=== PATIENT | female | born 2000 | race Caucasian/White ===

== ENCOUNTER 2024-01-02 09:00 | Outpatient (RCR) | payer OTHER, SELFPAY | END 2024-01-02 09:21 | disposition home or self-care (01) | LOC: HO.PT 09:00 | PROVIDERS: PCP Pediatrics Adolescent Medicine; Visit Provider Obstetrics & Gynecology | DX: N94.2 Vaginismus (principal); G89.29 Other chronic pain; R10.2 Pelvic and perineal pain | CPT/HCPCS: 97110; 97140; 97162 ==

== ENCOUNTER 2024-02-23 09:44 | Outpatient (AMB) | payer OTHER, SELFPAY ==
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
[2024-02-23 10:05] VITALS: BP 100/60; PULSE 76; RESP 20; BMI 31.6
== END 2024-02-23 10:41 | disposition home or self-care (01) ==
PROVIDERS: PCP Internal Medicine; Visit Provider Internal Medicine
DX: Z00.00 Encounter for general adult medical examination without abnormal findings (principal); L91.8 Other hypertrophic disorders of the skin; M25.511 Pain in right shoulder; G89.29 Other chronic pain; Z87.81 Personal history of (healed) traumatic fracture
CPT/HCPCS: 99385

== ENCOUNTER 2024-07-23 09:03 | Outpatient (AMB) | payer OTHER, SELFPAY ==
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
[2024-07-23 09:09] VITALS: BP 118/68; PULSE 74; RESP 12; O2SAT 98; BMI 33.3
== END 2024-07-23 09:49 | disposition home or self-care (01) ==
PROVIDERS: PCP Internal Medicine; Visit Provider Internal Medicine
DX: F41.9 Anxiety disorder, unspecified (principal)

== ENCOUNTER → 2024-07-23 09:03 | Outpatient (BNVA) | payer OTHER, SELFPAY | PROVIDERS: PCP Internal Medicine; Visit Provider Internal Medicine | DX: F41.9 Anxiety disorder, unspecified (principal); J45.909 Unspecified asthma, uncomplicated | CPT/HCPCS: 96127 ==

== ENCOUNTER 2024-08-09 11:19 | Outpatient (AMB) | payer OTHER, SELFPAY ==
--- NOTE | 2024-08-09 11:43 | MHC.PC.OV ---
Vital Signs 08/09/24 11:48 Height 5 ft 4 in Weight 199 lb 2 oz BMI 34.2 BP 108/74 Blood Pressure Location Lt brachial Position Sitting Pulse 74 Pulse Source Pulse Oximeter Temp 98.2 F Temp Source Oral Pulse Oximetry (%) 99 Oxygen Delivery Method Room Air Intake Visit Reasons: Sinus infection Intake Note: Last Friday had sore throat and nasal drip. more congested on Friday. Covid test on Friday was never. Ear popping, sinus pain. Director Of [facility] Required: No Allergies prednisone Allergy (Unknown, Verified 08/09/24 11:45) Unknown Tobacco use date assessed: 02/23/24 Dental Screening Dental Screen Date: 02/23/24 HPI HPI Comments History of Present Illness Details This is a 24-year-old female with a past medical history of anxiety and asthma presenting for a sick visit. The patient developed sinus congestion 8 days ago. She has worsening pressure in her sinuses and sinus pain. This is worse if she presses on her cheeks. She had postnasal drip. She has nasal discharge. She feels tired. No fevers or chills. No cough, wheezing or shortness of breath. Her ears feel congested but not painful, and she can still hear normally. Sore throat with bothering her mid week which she attributes to postnasal drip. This resolved. Home COVID-19 test negative. ROS: Constitutional: No fevers or chills. Eyes: No vision changes, blurry vision, double vision, eye pain, eye redness, eye discharge. ENT: No hearing loss, ear pain, see HPI Respiratory: No shortness of breath, cough or sputum production. Cardiovascular: No chest pain Gastrointestinal: No anorexia, nausea, vomiting or diarrhea. No abdominal pain or blood in stool. Neurologic: No headache, dizziness, syncope. Skin: No rash Physical exam: Constitutional: Alert, in no distress. Eyes: Pupils are equal, round and reactive to light. Extraocular muscles intact. Ear, Nose and Throat: TMs vanegas, pearly. Nasal mucosa erythematous. Clear nasal discharge present bilaterally. Inferior turbinates 2+. Maxillary sinuses tender. No oral lesions, exudates or erythema. Neck: Supple, Full range of motion. No lymphadenopathy. Respiratory: Clear to auscultation. Cardiovascular: S1 S2 regular. No murmurs. Neurologic: No focal neurological deficits. Extremities: Warm and well perfused. 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 1. Little interest or pleasure in doing things: several days 2. Feeling down, depressed, or hopeless: several days 3. Trouble falling or staying asleep, or sleeping too much: more than half the days 4. Feeling tired or having little energy: more than half the days 5. Poor appetite or overeating: not at all 6. Feeling bad about yourself - or that you are a failure or have let yourself or your family down: not at all 7. Trouble concentrating on things, such as reading the newspaper or watching television: not at all 8. Moving or speaking so slowly that other people could have noticed. Or the opposite - being so fidgety or restless that you have been moving around a lot more than usual: not at all 9. Thoughts that you would be better off or of hurting yourself in some way: not at all Total score: 6 Source: Developed by Drs. Bahman Murguia, Maxine Blakely, Jean Cedeno and colleagues, with an educational luke from [employer]. Thrive Questionnaire Date Thrive assessed: 07/23/24 I am a: Patient What is your living situation today?: I have a steady place to live Within the past 12 months, did the food you bought not last and you didn't have the money to get more?: Never true Within the past 12 months, did you worry whether your food would run out before you got money to buy more?: Never true Do you have trouble paying for medicines?: No Do you have trouble getting transportation to medical appointments?: No Do you have trouble paying your heating and electricity bill?: No Do you have trouble taking care of your child, family member or friend?: No Do you have trouble with day-to-day activities such as bathing, preparing meals, shopping, managing finances, etc.?: No Are you currently unemployed and looking for a job?: No Are you interested in more education?: No Please select the resources that you would like help with: None Currently or been in a relationship where the following occur: I choose not to answer THRIVE Score: 0 AUDIT C Alcohol Use Questionnaire (AUDIT-C) 1. How often do you have a drink containing alcohol?: Monthly or less 2. How many drinks containing alcohol do you have on a typical day when you are drinking?: 1 or 2 3. How often do you have six or more drinks on one occasion?: Never Total Score: 1 NATALYA-7 AMB Questionnaire NATALYA-7 Date NATALYA - 7 assessed: 07/23/24 Feeling nervous, anxious, or on edge: 1 = Several days Not being able to stop or control worryin = More than half the days Worrying too much about different things: 2 = More than half the days Trouble relaxin = More than half the days Being so restless that it is hard to sit still: 2 = More than half the days Becoming easily annoyed or irritable: 2 = More than half the days Feeling afraid as if something awful might happen: 2 = More than half the days Total NATALYA-7 score (0-4 normal; 5-9 mild; 10-14 moderate; 15-21 severe): 13 Source: Developed by Drs. Bahman Murguia, Maxine Blakely, Jean Cedeno and colleagues, with an educational luke from [employer]. Physical exam (Primary Care) Vital Signs: Last Vital Signs Temp 98.2 F 08/09/24 11:48 Pulse 74 08/09/24 11:48 BP 108/74 08/09/24 11:48 Pulse Ox 99 08/09/24 11:48 Oxygen Delivery Method Room Air 08/09/24 11:48 BMI result Body Mass Index 34.2 Tobacco/Smoking Status: Tobacco use Status Tobacco use date assessed 02/23/24 08/09/24 11:47 Patient Tobacco Use Status Never used Tobacco 08/09/24 11:47 e-Cigarette/Vaping Use Never Used 08/09/24 11:47 PHQ-9: PHQ-9 Score PHQ-9: Total score 6 08/09/24 12:03 Thrive Assessment: Date of Thrive Assessment Date Thrive assessed 07/23/24 08/09/24 11:47 Currently or been in a relationship where the following occur: I choose not to answer Coding Level of Care Code Est Pt Level 3 (37718) Complex EM visit Add On G2211 Diagnoses Acute sinusitis J01.90 Assessment & Plan Assessment & Plan (1) Acute sinusitis: Code(s): J01.90 - Acute sinusitis, unspecified Category: Medical Plan: No allergies to antibiotics. Prescribed Augmentin. Take with food. Have yogurt and daily probiotics. Side effects reviewed. Use backup control for any cycles that overlap with antibiotic. Complete full course of antibiotics. Recommended nasal saline and Nasacort or Flonase 1 spray twice daily in each nares. Increase fluids. She can use supportive care at home including Vicks in a cool mist humidifier. Reviewed warning signs warranting follow up. She verbalizes understanding. Medications: New amoxicillin-pot clavulanate 875-125 mg 1 tab PO BID 20 tabs 0RF
[2024-08-09 11:48] VITALS: BP 108/74; PULSE 74; TEMP 36.8; O2SAT 99; BMI 34.2
== END 2024-08-09 13:48 | disposition home or self-care (01) ==
PROVIDERS: PCP Internal Medicine; Visit Provider Physician Assistant Medical
DX: J01.90 Acute sinusitis, unspecified (principal)

== ENCOUNTER 2024-09-01 09:22 | Outpatient (REF) | payer OTHER, SELFPAY ==
--- NOTE | ~2024-09-01 | XR_ITS ---
EXAMINATION: XR CHEST CLINICAL INFORMATION: J10.1 - Influenza due to other identified influenza virus with other res... COMPARISON: None available. TECHNIQUE: 2 views of the chest were obtained. FINDINGS: No consolidation, pleural effusion or pneumothorax. No hyperinflation. Cardiomediastinal silhouette is normal. Osseous structures are intact. Mild S-shaped curvature of the thoracolumbar junction. XR/XR chest 2V IMPRESSION: No acute airspace disease. Thoracolumbar scoliosis, mild. Electronically signed by: José Kwong MD 09/01/2024 10:43 AM ENRRIQUE
--- OUTSIDE RECORDS SUMMARY | 2024-09-01 11:20 | XMS_ITS | Encounter Summary ---
Author Organization [facility] Address [address] [place] [id number] Care Team Providers Care Environmental Services Project Manager Name Role Phone Meghan Lujan MD Primary Care Provider [phone] Encounter Details Date Type Department Care Team (Late st Contact Info) Description 09/06/2022 Telephone [facility] at [facility] [address], [place] [id number] Mariam Foote, TOOL LAPPER HAND [address] [place] [id number] Social History Tobacco Use Types Packs/Day Years Used Date Smoking Tobacco: Never Smokeless Tobacco: Never Comments No Sex and Gender Information Value Date Recorded Sex Assigned at Female 08/04/2020 6:21 PM EST Legal Sex Female 10:33 AM EDT Gender Identity Female 08/04/2020 6:21 PM EST Sexual Orientation Straight 08/04/2020 6: 21 PM EST documented as of this encounter Miscellaneous Notes * Telephone Encounter - Shivam Flood - 09/06/2022 2:31 PM EST Received a call from patient, she was seen Friday and referred to ortho @ [place], she found an earlier appt with ([facility], they are requiring a referral before they can schedule the patient documented in this encounter Plan of Treatment Not on file documented as of this encounter Visit Diagnoses Not on filedocumented in this encounter Care Teams Environmental Services Project Manager Relationship Specialty Start Date End Date Meghan Lujan MD [address] [place] [phone] PCP - General Pediatrics 08/21/20 documented as of this encounter
--- OUTSIDE RECORDS SUMMARY | 2024-09-01 11:20 | XMS_ITS | Clinical Summary ---
Author Organization [address] Address [address] [place] [phone] Phone Care Team Providers Care Sightseeing Guide Name Role Phone Meghan Lujan MD Primary Care Provider [phone] Allergies Active Allergy Reactions Criticality Noted Date Comments Peanut Anaphylaxis High 08/21/2020 Medications EPINEPHrine (EPIPEN) 0.3 mg/0.3 mL auto-injector Inject 0.3 mg into the muscle as needed. Seek immediate medical attention via EMS and hospital. 1 each 1 Active albuterol sulfate 90 mcg/actuation HFA aerosol inhaler INHALE TWO PUFFS BY MOUTH EVERY 4-6 HOURS NEEDED 2 Active QVAR REDIHALER 80 mcg/actuation HFA aerosol inhaler INHALE TWO PUFFS BY MOUTH TWICE A DAY 2 Active medroxyPROGESTE Khurram (DEPO-PROVERA) 150 mg/mL injection INJECT 1 ML INTO THE MUSCLE ONCE EVERY 3 MONTHS 3 Active tiZANidine (ZANAFLEX) 2 mg tabletIndicatio ns:Chronic bilateral low back pain with right-sided sciatica Take 1 tablet (2 mg total) by mouth 3 (three) times daily as needed (muscle pain). 30 tablet 3 Active rizatriptan (MAXALT) 5 mg tablet TAKE 1 TABLET BY MOUTH NEEDED FOR MIGRAINE. MAY REPEAT IN 2 HOURS IF NEEDED 2 Active methylPREDNISol one (MEDROL DOSEPACK) 4 mg tablet TAKE SIX TABLETS FOR 1 DAY, THEN FIVE TABLETS FOR 1 DAY, THEN FOUR TABLETS FOR 1 DAY,THEN THREE TABLETS FOR 1 DAY, THEN TWO TABLETS FOR 1 DA 3 Active meloxicam (MOBIC) 15 mg tablet Take 1 tablet (15 mg total) by mouth daily. 3 Active loperamide (IMODIUM) 2 mg capsuleIndicati ons:Gastroenter itis Take 1 capsule (2 mg total) by mouth 4 (four) times daily as needed for diarrhea. 4 capsule 3 Active phenol-phenolat e sodium (CHLORASEPTIC) SprA oral sprayIndication s:Sore throat Take 1 spray by mouth 4 (four) times daily as needed. 177 mL 3 Active Active Problems No known active problems Immunizations Name Administration Dates Next Due Influenza, injectable, quadrivalent, preservativ e free 05/08/2021 Influenza, recombinant, quad, preservative free 05/21/2020 Social History Tobacco Use Types Packs/Day Years Used Date Smoking Tobacco: Never Smokeless Tobacco: Never Tobacco Cessation:Counseling Given: Not Answered Comments No Sex and Gender Information Value Date Recorded Sex Assigned at Female 08/04/2020 6:21 PM EST Legal Sex Female 10:33 AM EDT Gender Identity Female 08/04/2020 6:21 PM EST Sexual Orientation Straight 08/04/2020 6: 21 PM EST Last Filed Vital Signs Vital Sign Reading Time Taken Comments Blood Pressure 128/84 10/17/2022 10:35 AM EDT Pulse 96 10/17/2022 10:07 AM EDT Temperature 36.9 ??C (98.4 ??F) 08/21/2020 5:31 PM ES T Respiratory Rate 18 08/21/2020 5:31 PM EST Oxygen Saturation 99% 10/17/2022 10:07 AM EDT Inhaled Oxygen Concentration - - Weight 90.7 kg (200 lb) 10/17/2022 10:07 AM EDT Height 162.6 cm (5' 4 ) 10/17/2022 10:07 AM EDT Body Mass Index 34.33 10/17/2022 10:07 AM EDT Plan of Treatment Health Maintenance Due Date Last Done Comments MMR Vaccines (1 of 1 - Standard series) 2003 DTaP/TDaP Vaccines (1 - Tdap) 2009 HIV screening 2015 Varicella Vaccines (1 of 2 - 13+ 2-dose series) 2015 HPV vaccine series (1 - 3-do se series) 2017 Chlamydia screening 2019 Hepatitis C screening 01/09/2020 Hepatitis B vaccine series ( 1 of 3 - 19+ 3-dose series) 2021 Tetanus adult (Td q 10,TDAP once) 2022 Cervical cancer screening 2023 Influenza vaccine 02/26/2024 05/08/2021, 05/21/2020 Covid-19 vaccine series ( - 2023- season) 2024 RSV Discussion (1 - 1-dose 7 5+ series) 2077 HIB Vaccines Aged Out No longer eligi ble based on patient's age to complete this topic Hepatitis A Vaccines Aged Out No long er eligible based on patient's age to complete this topic IPV Vaccines Aged Out No longer eligi ble based on patient's age to complete this topic Meningococcal Vaccine Aged Out No marina jessica eligible based on patient's age to complete this topic Pneumococcal Vaccine Aged Out No long er eligible based on patient's age to complete this topic Rotavirus Vaccines Aged Out No longer eligible based on patient's age to complete this topic Insurance AETNA [facility] AETNA [facility] AETNA [facility] Care Teams Sightseeing Guide Relationship Specialty Start Date End Date Meghan Lujan MD [address] [place] [address] [place] [address] PCP - General Pediatrics 08/21/20
--- OUTSIDE RECORDS SUMMARY | 2024-09-01 11:20 | XMS_ITS | Encounter Summary ---
Author Organization [facility] Address [address] [place] [phone] Care Team Providers Care Dimensional Integration Engineer Name Role Phone Meghan Lujan MD Primary Care Provider [phone] Encounter Details Date Type Department Care Team ([facility] st Contact Info) Description 09/19/2021 Scanned Document INTERFACE DEFAULT [address] [place] [phone] System, Provider Not In Social History Tobacco Use Types Packs/Day Years Used Date Smoking Tobacco: Never Assessed Comments No Sex and Gender Information Value Date Recorded Sex Assigned at Female 08/04/2020 6:21 PM EST Legal Sex Female 10:33 AM EDT Gender Identity Female 08/04/2020 6:21 PM EST Sexual Orientation Straight 08/04/2020 6: 21 PM EST documented as of this encounter Miscellaneous Notes * Result Encounter Note - Slime Baum MD - 09/19/2021 11:59 PM EST As you know, your ct scan is normal. I hope that you are feeling better. Please check [facility] with [facility] next [facility]. - Dr. Santiago(Sent to pt in [employer]) documented in this encounter Plan of Treatment Not on file documented as of this encounter Procedures Procedure Name Priority Date/Time Associated Diagnosis Comments CT RESULT SCAN 09/19/2021 12:00 AM EST documented in this encounter Results * CT RESULT SCAN (09/19/2021 12:00 AM EST) 09/19/2021 us Provider Not In System IMG SCAN REPORTS Final Re sult documented in this encounter Visit Diagnoses Not on filedocumented in this encounter Care Teams Dimensional Integration Engineer Relationship Specialty Start Date End Date Meghan Lujan MD [address] [place] [phone] PCP - General Pediatrics 08/21/20 documented as of this encounter
== END 2024-09-01 09:23 | disposition home or self-care (01) ==
LOC: HO.HMGCX 09:22
PROVIDERS: PCP Internal Medicine; Visit Provider Nurse Practitioner Family
DX: J10.1 Influenza due to other identified influenza virus with other respiratory manifestations (principal); J45.20 Mild intermittent asthma, uncomplicated; R05.1 Acute cough
CPT/HCPCS: 71046

== ENCOUNTER → 2024-09-01 10:28 | Outpatient (BNV) | payer OTHER, SELFPAY | PROVIDERS: PCP Internal Medicine; Visit Provider Radiology Diagnostic Radiology | DX: J10.1 Influenza due to other identified influenza virus with other respiratory manifestations (principal) | CPT/HCPCS: 71046 ==

== ENCOUNTER 2024-09-03 15:55 | Outpatient (AMB) | payer OTHER, SELFPAY ==
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
--- OUTSIDE RECORDS SUMMARY | 2024-09-03 15:57 | XMS_ITS | Clinical Summary ---
Author Organization [address] Address [address] [place] [phone] Phone Care Team Providers Care Staff Climate Scientist Name Role Phone Meghan Lujan MD Primary Care Provider [phone] Allergies Active Allergy Reactions Criticality Noted Date [...] age to complete this topic Insurance [facility] [facility] [facility] Care Teams Staff Climate Scientist Relationship Specialty Start Date End Date Meghan Lujan MD [address] [place] [address] [place] [address] PCP - General Pediatrics 08/21/20
--- OUTSIDE RECORDS SUMMARY | 2024-09-03 15:57 | XMS_ITS | Encounter Summary ---
Author Organization [facility] Address [address] [place] [phone] Care Team Providers Care Hi Lo Driver Name Role Phone Meghan Lujan MD Primary Care Provider [phone] Encounter Details Date Type Department Care Team (Late st Contact Info) Description 09/06/2022 Telephone NEMG at [facility] [address] [place], [place] [phone] Mariam Foote, CAR FILLER [address] [place] [phone] Social History Tobacco Use Types Packs/Day Years [...] seen Friday and referred to ortho @ [place], she found an earlier appt with ([facility] [place] [facility], they are requiring a referral before they can schedule the patient documented in this encounter Plan of Treatment Not on file documented as of this encounter Visit Diagnoses Not on filedocumented in this encounter Care Teams Hi Lo Driver Relationship Specialty Start Date End Date Meghan Lujan MD [address] [place] [phone] PCP - General Pediatrics 08/21/20 documented as of this encounter
--- OUTSIDE RECORDS SUMMARY | 2024-09-03 15:57 | XMS_ITS | Encounter Summary ---
Author Organization [facility] Address [address] [place] [phone] Care Team Providers Care Us Customs And Border Officer Name Role Phone Meghan Lujan MD Primary Care Provider [phone] Encounter Details Date Type Department Care Team ([facility] st Contact Info) Description 09/19/2021 Scanned Document INTERFACE DEFAULT [address] [place] [phone] System, Provider Not In Social History Tobacco [...] check in with me inhealth services at [facility] next week. - Dr. Santiago(Sent to pt in [employer]) documented in this encounter Plan of Treatment [...] on filedocumented in this encounter Care Teams Us Customs And Border Officer Relationship Specialty Start Date End Date Meghan Lujan MD [address] [place] [phone] PCP - General Pediatrics 08/21/20 documented as of this encounter
--- OUTSIDE RECORDS SUMMARY | 2024-09-03 15:57 | XMS_ITS | Patient Health Record ---
Author Organization [facility] Address [address] [place] [address] Support Name Relationship Address Phone Paulette Peña Guarantor Unknown [phone] Reason For Referral No Information Plan Of Treatment Pending Test Test Name Order Date Respiratory Panel w COVID19 03/09/2020 Respiratory Panel w COVID19 03/09/2020 Respiratory Panel w COVID19 03/09/2020 COVID19 IH 03/09/2020 COVID19 IH 03/09/2020 COVID19 IH 03/09/2020 Insurance Providers Payer Name Payer Address Payer Phone Subscriber Number Group Number Insured Name Patient Relationship to Insured Coverage Start Date Coverage End Date Aetna [address] [place] [address] [id number] Paulette Peña Self - patient is the insured
== END 2024-09-03 17:05 | disposition home or self-care (01) ==
LOC: HO.HMCFM 15:55
PROVIDERS: PCP Internal Medicine; Visit Provider Internal Medicine
DX: F41.9 Anxiety disorder, unspecified (principal)

== ENCOUNTER → 2024-09-03 15:55 | Outpatient (BNVA) | payer OTHER, SELFPAY | PROVIDERS: PCP Internal Medicine; Visit Provider Internal Medicine | DX: F41.9 Anxiety disorder, unspecified (principal); J45.909 Unspecified asthma, uncomplicated | CPT/HCPCS: 96127 ==

== ENCOUNTER 2024-11-02 11:41 | Outpatient (AMB) | payer OTHER, SELFPAY ==
--- NOTE | 2024-11-02 11:51 | AM.OFFWIN_ITS ---
Intake Vital Signs 11/02/24 11:59 Height 5 ft 4 in Weight 198 lb 8 oz BMI 34.1 BP 112/66 Blood Pressure Location Rt brachial Position Sitting Respiration 12 Pulse 73 Pulse Source Pulse Oximeter Temp 97.6 F Temp Source Oral Pulse Oximetry (%) 98 Oxygen Delivery Method Room Air Intake Visit Reasons: Sore throat /cough Intake Note: Patient c/o coughing, runny nose, congestion, face and head pressure x 1 week. Patient was also seen in urgent care last Friday and finished her prednisone and finished it on Friday. Patient Tobacco Use Status: Never used Tobacco Electrical Cad Designer Required: No Allergies No Known Allergies Allergy (Verified 11/02/24 12:20) Medication List - Last Reconciled 11/02/24 by KVNG AldanaP- albuterol sulfate 90 mcg/actuation 2 puffs inhalation Q4H PRN 90 days beclomethasone dipropionate 80 mcg/actuation (Qvar RediHaler) 0 inhalations inhalation epinephrine IM fluoxetine (Prozac) 10 mg PO DAILY ipratropium-albuterol 20-100 mcg/actuation (Combivent Respimat) 1 puff inhala tion QID levonorgestrel-ethinyl estrad 0.1-20 mg-mcg (Vienva) 1 tab PO DAILY lorazepam 1 mg PO BID PRN ondansetron mg PO PRN rizatriptan 5 mg PO Q2H PRN 90 days MDD 2 tab spironolactone 50 mg PO DAILY Do you need a note to return to daycare/school/sports/work: Yes HPI HPI Comments History of Present Illness Details 24 y/o F here today with URI Started 2 weeks ago Sore throat, runny nose, cough, sinus congestion and pressure Went to last Friday Given prednisone and told of viral URI Stopped pred on Friday [place] better but all sx recurred w/in 24 hours Reports flu covid and rsv testing negative Using APAP Denies fever, chills, n/v/d, abd pain, trouble or painful swallowing Exam Awake alert NAD Sclera and conjunctiva clear bilat Nares mucoid d/c , turbinates erythematous and edematous, + frontal and maxillary sinus tenderness with palpation bilat TM intact + congestion bilat, R>L MMM, pharynx WNL RRR LS CTAB Plan: Augmentin BID x 7 days take w/food to avoid GI upset No nasal decongestants flonase and saline ok edu on reasons to RTO PFSH Medical History Acute sinusitis Family History Father High blood pressure Paternal Grandmother High blood pressure Paternal Grandfather High blood pressure High cholesterol Skin cancer Maternal Grandmother Diabetes Maternal Grandfather Stomach cancer Social History Housing: House Patient Tobacco Use Status: Never used Tobacco e-Cigarette/Vaping Use: Never Used Second Hand Smoke Exposure: No service: No Current occupational status: employed Current occupation: [employer] Current occupational exposures/hazards: No Cognitive needs: No Hearing needs: No Vision needs: No Physical Exam Vital Signs: Last Vital Signs Temp 97.6 F 11/02/24 11:59 Pulse 73 11/02/24 11:59 Resp 12 11/02/24 11:59 BP 112/66 11/02/24 11:59 Pulse Ox 98 11/02/24 11:59 Oxygen Delivery Method Room Air 11/02/24 11:59 BMI result Body Mass Index 34.1 Assessment & Plan Assessment & Plan (1) Acute sinusitis: Code(s): J01.90 - Acute sinusitis, unspecified Qualifiers: Sinusitis location: pansinusitis Recurrence: non-recurrent Qualified Code(s): J01.40 - Acute pansinusitis, unspecified Plan . Medications: New amoxicillin-pot clavulanate 875-125 mg 1 tab PO BID 7 days 14 tabs 0RF Coding Level of Care Code Est Pt Level 3 (33302) Diagnoses Acute non-recurrent pansinusitis J01.40 Sinusitis location: pansinusitis Recurrence: non-recurrent
[2024-11-02 11:59] VITALS: BP 112/66; PULSE 73; RESP 12; TEMP 36.4; O2SAT 98; BMI 34.1
--- OUTSIDE RECORDS SUMMARY | 2024-11-02 14:20 | XMS_ITS | Patient Health Record ---
Author Organization [facility] Address [address] [place] [address] Support Name Relationship Address Phone Paulette Peña Guarantor Unknown [phone] Reason For Referral No Information Plan Of [...] Date Coverage End Date Aetna [address] [place] [address] [id number] Paulette Peña Self - patient is the insured
--- OUTSIDE RECORDS SUMMARY | 2024-11-02 14:20 | XMS_ITS | Encounter Summary ---
Author Organization [facility] Address [address] [place] [phone] Care Team Providers Care Set Illustrator Name Role Phone Meghan Lujan MD Primary Care Provider [phone] Encounter Details Date Type Department Care Team ([facility] st Contact Info) Description 09/19/2021 Scanned Document INTERFACE DEFAULT [address] [place] [phone] System, Provider Not In Social History Tobacco [...] check in with me inhealth services at [facility] next week. - Dr. Santiago(Sent to pt in [employer]) documented in this encounter Plan of Treatment [...] on filedocumented in this encounter Care Teams Set Illustrator Relationship Specialty Start Date End Date Meghan Lujan MD [address] [place] [phone] PCP - General Pediatrics 08/21/20 documented as of this encounter
--- OUTSIDE RECORDS SUMMARY | 2024-11-02 14:20 | XMS_ITS | Encounter Summary ---
Author Organization [facility] Address [address] [place] [phone] Care Team Providers Care Sailor Name Role Phone Meghan Lujan MD Primary Care Provider [phone] Encounter Details Date Type Department Care Team (Late st Contact Info) Description 09/06/2022 Telephone NEMG at [facility] [address] [place], [place] [phone] Mariam Foote, RISK MANAGER [address] [place] [phone] Social History Tobacco Use Types Packs/Day Years [...] seen Friday and referred to ortho @ [place], she found an earlier appt with ([facility]) [place] [facility] specialist, they are requiring a referral before they can schedule the patient documented in this encounter Plan of Treatment Not on file documented as of this encounter Visit Diagnoses Not on filedocumented in this encounter Care Teams Sailor Relationship Specialty Start Date End Date Meghan Lujan MD [address] [place] [phone] PCP - General Pediatrics 08/21/20 documented as of this encounter
--- OUTSIDE RECORDS SUMMARY | 2024-11-02 14:20 | XMS_ITS | Clinical Summary ---
Author Organization [address] Address [address] [place] [phone] Phone Care Team Providers Care Test Carrier Name Role Phone Meghan Lujan MD Primary Care Provider [phone] Allergies Active Allergy Reactions Criticality Noted Date [...] 10,TDAP once) 2022 Cervical cancer screening 2023 Covid-19 vaccine series (1 - 2023- season) 2024 Influenza vaccine 03/28/2025 05/08/2021, 05/21/2020 RSV Immunization (1 - 1-dose 75+ series) 2077 HIB Vaccines Aged Out No [...] age to complete this topic Pneumococcal Vaccine (2 - 49 years) Aged Out No longer eligible b ased on patient's age to complete this topic Rotavirus Vaccines Aged Out No longer eligible based on patient's age to complete this topic Insurance AET[employer] Member Subscriber Plan / Payer (Ef fective 2012-Present) Name:Paulette Wagner Relation to Subscriber:Child Name:KRISTYTONY Webber (Home) Address: [address] [place] [address] Payer ID:[id number] (NASILVIO) Type:Not on file Address: [facility] [address] [place] [address] [facility] AETNA Member Subscriber Plan / Payer (Ef fective 2012-Present) Name:Paulette Wagner Relation to Subscriber:Child Name:TONY WAGNER (Home) Address: [address] [place] [address] Payer ID:[id number] ([facility]) Type:Not on file Address: [facility] [id number] [place], [place] [id number] [place] [address] AETNA [facility] Care Teams Test Carrier Relationship Specialty Start Date End Date Meghan Lujan MD [address] [place] [phone] PCP - General Pediatrics 08/21/20
== END 2024-11-02 12:26 | disposition home or self-care (01) ==
PROVIDERS: PCP Internal Medicine; Visit Provider Nurse Practitioner Family
DX: J01.40 Acute pansinusitis, unspecified (principal)

== ENCOUNTER → 2024-11-02 11:41 | Outpatient (BNVA) | payer OTHER, SELFPAY | PROVIDERS: PCP Internal Medicine ==

== ENCOUNTER 2025-04-12 08:52 | Outpatient (AMB) | payer OTHER, SELFPAY ==
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
[2025-04-12 09:07] VITALS: BP 108/74; PULSE 80; RESP 14; TEMP 36.9; O2SAT 97; BMI 36.6
--- OUTSIDE RECORDS SUMMARY | 2025-04-12 10:55 | XMS_ITS | Encounter Summary ---
Author Organization [facility] Address [address] [place] [phone] Care Team Providers Care Mangle Roller Name Role Phone Meghan Lujan MD Primary Care Provider [phone] Encounter Details Date Type Department Care Team ([facility] st Contact Info) Description 09/19/2021 Scanned Document INTERFACE DEFAULT [address] [place] [phone] System, Provider Not In Social History Tobacco [...] with me inhealth services at [facility] next week. - Dr. Santiago(Sent to pt in Click Contact) documented in this encounter Plan of Treatment [...] on filedocumented in this encounter Care Teams Mangle Roller Relationship Specialty Start Date End Date Meghan Lujan MD [address] [place] [phone] PCP - General Pediatrics 08/21/20 documented as of this encounter
--- OUTSIDE RECORDS SUMMARY | 2025-04-12 10:55 | XMS_ITS | Encounter Summary ---
Author Organization [facility] Address [address] [place] [address] Care Team Providers Care Computer Graphic Artist Name Role Phone Meghan Lujan MD Primary Care Provider [phone] Encounter Details Date Type Department Care Team (Late st Contact Info) Description 09/06/2022 Telephone [facility] at [facility] [address] [place], [place] [id number] Mariam Foote, TELEMARKETER SUPERVISOR [address] [place] [id number] Social History Tobacco Use Types Packs/Day Years [...] seen Friday and referred to ortho @ [place], she found an earlier appt with ([facility]) [place] [facility], they are requiring a referral before they can schedule the patient documented in this encounter Plan of Treatment Not on file documented as of this encounter Visit Diagnoses Not on filedocumented in this encounter Care Teams Computer Graphic Artist Relationship Specialty Start Date End Date Meghan Lujan MD [address] [facility] [place] [phone] PCP - General Pediatrics 08/21/20 documented as of this encounter
--- OUTSIDE RECORDS SUMMARY | 2025-04-12 10:55 | XMS_ITS | Patient Health Record ---
Author Organization [facility] Address [address] [place] [address] Support Name Relationship Address Phone Paulette Peña Guarantor Unknown [phone] Reason For Referral No Information Plan Of [...] Date Coverage End Date [employer] [address] [place] [address] [id number] Paulette Peña Self - patient is the insured
--- OUTSIDE RECORDS SUMMARY | 2025-04-12 10:55 | XMS_ITS | Clinical Summary ---
Author Organization [address] Address [address] [place] [phone] Phone Care Team Providers Care Top Icer Name Role Phone Meghan Lujan MD Primary Care Provider [phone] Allergies Active Allergy Reactions Criticality Noted Date [...] Active Problems No known active problems Immunizations Immunization Administration Dates Next Due Influenza, injectable, quadrivalent, [...] 96 10/17/2022 10:07 AM EDT Temperature 36.9 C (98.4 F) 08/21/2020 5:31 PM EST Respiratory Rate 18 08/21/2020 5:31 PM EST [...] series (1 - 3-do se series) 2017 Meningococcal B Vaccine (1 o f 2 - Standard) 2018 Chlamydia screening 2019 Hepatitis C screening 01/09/2020 Hepatitis B vaccine series ( 1 of 3 - 19+ 3-dose series) 2021 Tetanus adult (Td q 10,TDAP once) 2022 Cervical cancer screening 2023 Covid-19 vaccine series ( - season) 2025 Influenza vaccine 03/28/2025 05/08/2021, 05/21/2020 RSV Immunization [...] age to complete this topic Insurance [place] [address] [place] [address] [place] [address] [place] [address] [employer] [facility] Care Teams Top Icer Relationship Specialty Start Date End Date Meghan Lujan MD [address] [place] [phone] PCP - General Pediatrics 08/21/20
== END 2025-04-12 10:22 | disposition home or self-care (01) ==
LOC: HO.HMCFM 08:53
PROVIDERS: PCP Internal Medicine; Visit Provider Internal Medicine
DX: J01.40 Acute pansinusitis, unspecified (principal); F41.9 Anxiety disorder, unspecified; F33.41 Major depressive disorder, recurrent, in partial remission